=== PATIENT | female | born 1950 | race Caucasian/White ===

== ENCOUNTER 2020-03-03 14:41 | Emergency (ER) | payer MEDICARE, BC ==
[~2020-03-03 14:41] MED LIST: Sodium Chloride 0.9% 1,000 ML ONE
[2020-03-03] MEDS ORDERED: Sodium Chloride 0.9% 1,000 ML ONE (15:14)
[2020-03-03 15:27] LABS: PTT,PARTIAL THROMBOPLSTIN TIME 28.2 SEC (23.2-32.3)
--- NOTE | 2020-03-03 15:38 | EDM.PDOC ---
ED HPI GENERAL MEDICAL PROBLEM - General Chief Complaint: Neuro Symptoms/Deficits Stated Complaint: ? stroke Time Seen by Provider: 03/03/20 14:41 Source of Information: Reports: Patient, EMS, Family History Limitations: Reports: Altered Mental Status - History of Present Illness INITIAL COMMENTS - FREE TEXT/NARRATIVE: This patient is a 69 year old female that presents to the ER via EMS. The report I get from EMS. Patient has pancreatic cancer and had chemo on Wednesday. EMS reports that the patient today was acting fine, then became generally weak and would not respond to family. The patient arrives in the ER. She has no unilateral weaknesses noted on stroke exam, patient is awake, alert, oriented to place and self, but not time. The patient reports that she does not feel well, but does not now what is going on or why she is here. YANNA Kimble reports the family at the front door telling us not to touch this patient. Patient is headed directly into CT for head CT upon the arrival. I had staff to continue with head CT, as I stepped outside the facility front door to talk with family about their wishes. I spoke with and daughter who both report to continue treatment at this time. I then returned to the patient to continue care. I instructed RN to COVID screen the family daughter and to come into facility so I can continue to talk with them and care for the patient. The patent arrives hypotensive, tachycardic. She appears chronically ill. This patient may during this ER visit. The patient returned from CT, I finished examination as RNs put patient on cardiac monitors, established IVs. 2L NS wide open. Patient was placed in trendelenburg. Wes was notified to assist in patient care, so I can discuss further with family about DNR vs Full Code. Onset: Today Onset Date: 03/03/20 Onset Time: 10:00 Duration: Getting Worse Severity: Severe Improves with: Reports: None Worsens with: Reports: None Associated Symptoms: Reports: Confusion, Malaise, Shortness of Breath, Syncope, Weakness. Denies: Chest Pain, Cough, cough w sputum, Diaphoresis, Fever/Chills , Headaches, Loss of Appetite, Nausea/Vomiting, Rash, Seizure - Related Data Allergies Allergy/AdvReac Type Severity Reaction Status Date / Time cefuroxime [From Ceftin] Allergy Cannot Verified 03/03/20 15:16 Remember tramadol Allergy Cannot Verified 03/03/20 15:16 Remember Home Meds: Home Meds . [Unable to Verify Home Med List] 03/03/20 [History] ED ROS GENERAL - Review of Systems Review Of Systems: See Below Constitutional: Reports: Malaise, Weakness, Fatigue HEENT: Reports: No Symptoms Respiratory: Reports: Shortness of Breath. Denies: Wheezing, Pleuritic Chest Pain, Cough, Sputum Cardiovascular: Reports: Lightheadedness, Syncope. Denies: Chest Pain, Palpitations Endocrine: Reports: Fatigue GI/Abdominal: Reports: Diarrhea. Denies: Abdominal Pain, Nausea, Vomiting : Reports: No Symptoms Musculoskeletal: Reports: No Symptoms Skin: Reports: No Symptoms Neurological: Reports: Confusion, Dizziness. Denies: Weakness (generalized, NOT unilateral) Psychiatric: Reports: No Symptoms Hematologic/Lymphatic: Reports: No Symptoms Immunologic: Reports: No Symptoms - Physical Exam Exam: See Below Exam Limited By: Altered Mental Status General Appearance: Moderate Distress, Thin, Other (Appears very chronically ill ) Eye Exam: Bilateral Eye: EOMI, Normal Inspection, PERRL Ears: Normal External Exam, Normal Canal, Hearing Grossly Normal, Normal TMs Nose: Normal Inspection, Normal Mucosa, No Blood Throat/Mouth: Normal Lips, Normal Teeth, Normal Gums, Normal Oropharynx, Normal Voice, No Airway Compromise, Other (dry mucosa) Head Exam: Atraumatic, Normocephalic Neck: Normal Inspection, Supple Respiratory/Chest: No Respiratory Distress, Lungs Clear, Normal Breath Sounds, No Accessory Muscle Use, Chest Non-Tender Cardiovascular: Normal Peripheral Pulses, No Edema, Tachycardia (rate 128) GI/Abdominal: Soft, Non-Tender, Other (biliary drain in place) Neuro Exam (Abbreviated): Alert, Confused, Other (oriented to self and place. Not time. Does not know whats going on per patient) Back Exam: Normal Inspection Extremities: Normal Inspection, No Pedal Edema, Slow Capillary Refill Psychiatric: Normal Affect, Normal Mood Skin Exam: Warm, Dry, Intact, No Rash, Other (dusky ill appearing) Course - Vital Signs Last Recorded V/S: Last Vital Signs Temp 98.6 F 03/03/20 16:00 Pulse 113 H 03/03/20 16:00 Resp 28 H 03/03/20 16:00 BP 84/49 L 03/03/20 16:00 Pulse Ox 97 05/31/20 16:00 - Orders/Labs/Meds Orders: Active Orders 24 hr Category Date Time Status Chest 1V Frontal [CR] Routine Exams 03/03/20 Taken Head wo Cont [CT] Routine Exams 03/03/20 Taken CULTURE BLOOD [BC] Stat Lab 03/03/20 15:11 Received CULTURE URINE [RM] Stat Lab 03/03/20 15:55 Received Levofloxacin/Dextrose 5%-Water [Levaquin in D5W 500 MG/ Med 03/03/20 16:09 Active 100 ML] 500 mg Premix Bag 1 bag IV ONETIME Sodium Chloride 0.9% [Normal Saline] 1,000 ml Med 03/03/20 16:02 Active IV .BOLUS Sodium Chloride 0.9% [Normal Saline] 1,000 ml Med 03/03/20 16:15 Active IV BOLUS Medication Orders Sodium Chloride (Normal Saline) 1,000 mls @ 999 mls/hr IV .BOLUS ONE Stop: 03/03/20 17:02 Last Admin: 03/03/20 15:10 Dose: 999 mls/hr Sodium Chloride (Normal Saline) 1,000 mls @ 999 mls/hr IV BOLUS NOEMI Last Admin: 03/03/20 15:37 Dose: 999 mls/hr Levofloxacin/Dextrose 500 mg/ (Premix) 100 mls @ 100 mls/hr IV ONETIME ONE Stop: 03/03/20 17:08 Last Admin: 03/03/20 16:13 Dose: 100 mls/hr Labs: Laboratory Tests 03/03/20 03/03/20 03/03/20 Range/Units 15:11 15:11 15:11 WBC 0.3 L* (5.0-10.0) 10^3/uL RBC 2.38 L (4.00-5.50) 10^6/uL Hgb 7.7 L* (12.0-16.0) g/dL Hct 22.9 L (37.0-47.0) % MCV 96.2 H (82.0-94.0) fL MCH 32.4 H (27.0-32.0) pg MCHC 33.6 (33.0-38.0) g/dL RDW Coeff of Casimiro 19.4 H (11.0-15.0) % Plt Count 54 L (150-400) 10^3/uL Neut % (Auto) 55.6 (35-85) % Lymph % (Auto) 37.0 (10-55) % [place] % (Auto) 3.7 (0-16) % Eos % (Auto) 0 (0-5) % Baso % (Auto) 3.7 H (0-3) % Neut # (Auto) 0.15 L (1.80-7.00) 10^3/uL Lymph # (Auto) 0.10 L (1.00-4.80) 10^3/uL [place] # (Auto) 0.01 (0.00-0.80) 10^3/uL Eos # (Auto) 0.00 (0.00-0.45) 10^3/uL Baso # (Auto) 0.01 10^3/uL PT 12.1 (9.7-12.3) SEC INR 1.20 H (0.92-1.18) APTT 28.2 (23.2-32.3) SEC Sodium 132 L (136-145) mEq/L Potassium 3.0 L (3.5-5.0) mEq/L Chloride 97 L (98-106) mEq/L Carbon Dioxide 23 (21-32) mmol/L BUN 28 H (7-18) mg/dL Creatinine 1.3 H (0.6-1.0) mg/dL Est Cr Clr Drug Dosing 36.08 mL/min Estimated GFR (MDRD) 41 L (>=60) mL/min Glucose 137 H (75-99) mg/dL Lactic Acid (0.4-2.0) mmol/L Calcium 7.7 L (8.4-10.1) mg/dL Total Bilirubin 1.9 H (0.0-1.0) mg/dL AST 93 H (15-37) U/L ALT 95 H (12-78) U/L Alkaline Phosphatase 126 H (46-116) U/L Lactate Dehydrogenase 307 H (100-190) U/L Creatine Kinase 18 L (21-215) U/L Troponin I 0.019 (0.00-0.06) ng/mL C-Reactive Protein 14.5 H (0.2-0.8) mg/dL Total Protein 4.8 L (6.4-8.2) g/dL Albumin 1.6 L (3.4-5.0) g/dL Lipase 36 L (73-393) U/L Urine Color (YELLOW) Urine Appearance (CLEAR) Urine pH (4.5-8.0) Ur Specific [place] (1.003-1.020) Urine Protein (NEGATIVE) mg/dL Urine Glucose (UA) (NEGATIVE) mg/dL Urine Ketones (NEGATIVE) mg/dL Urine Occult Blood (NEGATIVE) Urine Nitrite (NEGATIVE) Urine Bilirubin (NEGATIVE) Urine Urobilinogen (0.2-1.0) EU/dL Ur Leukocyte Esterase (NEGATIVE) Urine RBC (0-5) /HPF Urine WBC (0-5) /HPF Ur Squamous Epith Cells (NOT SEEN) /HPF Urine Bacteria (NOT SEEN) /HPF Urinalysis Comment Blood Type Gel Antibody Screen 03/03/20 03/03/20 03/03/20 Range/Units 15:11 15:24 15:55 WBC (5.0-10.0) 10^3/uL RBC (4.00-5.50) 10^6/uL Hgb (12.0-16.0) g/dL Hct (37.0-47.0) % MCV (82.0-94.0) fL MCH (27.0-32.0) pg MCHC (33.0-38.0) g/dL RDW Coeff of Casimiro (11.0-15.0) % Plt Count (150-400) 10^3/uL Neut % (Auto) (35-85) % Lymph % (Auto) (10-55) % [place] % (Auto) (0-16) % Eos % (Auto) (0-5) % Baso % (Auto) (0-3) % Neut # (Auto) (1.80-7.00) 10^3/uL Lymph # (Auto) (1.00-4.80) 10^3/uL [place] # (Auto) (0.00-0.80) 10^3/uL Eos # (Auto) (0.00-0.45) 10^3/uL Baso # (Auto) 10^3/uL PT (9.7-12.3) SEC INR (0.92-1.18) APTT (23.2-32.3) SEC Sodium (136-145) mEq/L Potassium (3.5-5.0) mEq/L Chloride (98-106) mEq/L Carbon Dioxide (21-32) mmol/L BUN (7-18) mg/dL Creatinine (0.6-1.0) mg/dL Est Cr Clr Drug Dosing mL/min Estimated GFR (MDRD) (>=60) mL/min Glucose (75-99) mg/dL Lactic Acid 3.6 H (0.4-2.0) mmol/L Calcium (8.4-10.1) mg/dL Total Bilirubin (0.0-1.0) mg/dL AST (15-37) U/L ALT (12-78) U/L Alkaline Phosphatase (46-116) U/L Lactate Dehydrogenase (100-190) U/L Creatine Kinase (21-215) U/L Troponin I (0.00-0.06) ng/mL C-Reactive Protein (0.2-0.8) mg/dL Total Protein (6.4-8.2) g/dL Albumin (3.4-5.0) g/dL Lipase (73-393) U/L Urine Color Dark yellow (YELLOW) Urine Appearance Slightly cloudy (CLEAR) Urine pH 6.5 (4.5-8.0) Ur Specific [place] 1.020 (1.003-1.020) Urine Protein 100 H (NEGATIVE) mg/dL Urine Glucose (UA) Negative (NEGATIVE) mg/dL Urine Ketones 15 H (NEGATIVE) mg/dL Urine Occult Blood Small H (NEGATIVE) Urine Nitrite Positive H (NEGATIVE) Urine Bilirubin Small H (NEGATIVE) Urine Urobilinogen 4.0 H (0.2-1.0) EU/dL Ur Leukocyte Esterase Small H (NEGATIVE) Urine RBC 5-10 H (0-5) /HPF Urine WBC 40-50 H (0-5) /HPF Ur Squamous Epith Cells Moderate H (NOT SEEN) /HPF Urine Bacteria Many H (NOT SEEN) /HPF Urinalysis Comment Blood Type A POSITIVE Gel Antibody Screen Negative Meds: Medications Generic Name Dose Route Start Last Admin Trade Name Freq PRN Reason Stop Dose Admin Sodium Chloride 1,000 mls @ 999 mls/hr 03/03/20 16:02 03/03/20 15:10 Normal Saline IV 03/03/20 17:02 999 mls/hr .BOLUS ONE Administration Sodium Chloride 1,000 mls @ 999 mls/hr 03/03/20 16:15 03/03/20 15:37 Normal Saline IV 999 mls/hr BOLUS NOEMI Administration Levofloxacin/Dextrose 500 mg/ 100 mls @ 100 mls/hr 03/03/20 16:09 03/03/20 16 :13 Premix IV 03/03/20 17:08 100 mls/hr ONETIME ONE Administration Discontinued Medications Generic Name Dose Route Start Last Admin Trade Name Nba PRN Reason Stop Dose Admin Sodium Chloride Confirm 03/03/20 14:32 03/03/20 16:04 Normal Saline Administered 03/03/20 14:33 Not Given Dose 1,000 mls @ as directed .ROUTE .STK-MED ONE Sodium Chloride Confirm 03/03/20 15:14 03/03/20 16:04 Normal Saline Administered 03/03/20 15:15 Not Given Dose 1,000 mls @ as directed .ROUTE .STK-MED ONE Levofloxacin/Dextrose Confirm 03/03/20 15:57 03/03/20 16:16 Levaquin In D5w 500 Mg/100 Ml Administered 03/03/20 15:58 Not Given Dose 100 mls @ as directed IV .STK-MED ONE - Radiology Interpretation Free Text/Narrative:: Head CT: Negative CT Results Date: 03/03/20 CT Results Time: 15:30 - Re-Assessments/Exams Free Text/Narrative Re-Assessment/Exam: 03/03/20 15:00 I have spoken more to family. Family reports the patient has pancreatic and ovarian cancer. She had chemo Wednesday, saw oncologist as well, was doing fine. Then started to have diarrhea from the chemo. Family reports patient then went to [facility] yesterday, had 2L of fluids for her dehydration related to the diarrhea. Family reports was doing good, then today has been momre generally weak. Could not stand and nearly fell to the floor. They report the patient has been this way since this morning. They report the patient as the day progressed became less responsive to them and wouldnt talk to them. I spoke in great detail about code status. The patient currently does have a DNR, the reports. However, the reports that the patient has two daughters that are on their way, and he would like to keep her alive. He reports at this time he would like her to be a full code and transferred. Mateo Padgetta, is arranging flight to [facility] where this patients oncologist is. At this time, patient BP and HR are responding to the fluids. BP is 94/58, HR 102. 03/03/20 15:50 Also see Shay charting. 03/03/20 16:26 Patient has UTI, I think she is uroseptic. Levaquin was ordered. Departure - Departure Time of Disposition: 15:51 Disposition: DC/Tfer to [facility] 02 Condition: Critical Clinical Impression: Weakness generalized, Tachycardia, Sepsis associated hypotension, Sepsis due to urinary tract infection Hypotension Qualifiers: Hypotension type: unspecified hypotension type Qualified Code(s): I95.9 - Hypotension, unspecified - Discharge Information *PRESCRIPTION DRUG MONITORING PROGRAM REVIEWED*: Not Applicable *COPY OF PRESCRIPTION DRUG MONITORING REPORT IN PATIENT COREEN: Not Applicable Referrals: PCP,Unknown [Primary Care Provider] - Forms: ED Department Discharge Sepsis Event Note - Evaluation Sepsis Screening Result: No Definite Risk - Focused Exam Vital Signs: Vital Signs Temp Pulse Resp BP Pulse Ox 03/03/20 16:00 98.6 F 113 H 28 H 84/49 L 97 03/03/20 14:45 97.6 F 57 L 24 H 67/41 L 89 L Date Exam was Performed: 03/03/20 Time Exam was Performed: 16:26 - My Orders Last 24 Hours: My Active Orders 03/03/20 Chest 1V Frontal [CR] Routine Head wo Cont [CT] Routine 03/03/20 15:11 CULTURE BLOOD [BC] Stat 03/03/20 15:55 CULTURE URINE [RM] Stat 03/03/20 16:02 Sodium Chloride 0.9% [Normal Saline] 1,000 ml IV .BOLUS 03/03/20 16:09 Levofloxacin/Dextrose 5%-Water [Levaquin in D5W 500 MG/100 ML] 500 mg Premix Bag 1 bag IV ONETIME 03/03/20 16:15 Sodium Chloride 0.9% [Normal Saline] 1,000 ml IV BOLUS - Assessment/Plan Last 24 Hours: My Active Orders 03/03/20 Chest 1V Frontal [CR] Routine Head wo Cont [CT] Routine 03/03/20 15:11 CULTURE BLOOD [BC] Stat 03/03/20 15:55 CULTURE URINE [RM] Stat 03/03/20 16:02 Sodium Chloride 0.9% [Normal Saline] 1,000 ml IV .BOLUS 03/03/20 16:09 Levofloxacin/Dextrose 5%-Water [Levaquin in D5W 500 MG/100 ML] 500 mg Premix Bag 1 bag IV ONETIME 03/03/20 16:15 Sodium Chloride 0.9% [Normal Saline] 1,000 ml IV BOLUS Plan: PLEASE SEE RN NOTE FOR PFSH Patient is being transferred via flight. Risk vs Benefits explained to family. The risk of transfer is helicopter crash, , hypotension, tachycardia, cardiac arrest. The risk of staying in [place] is , cardiac arrest, no oncologist. The benefits of transfer are higher level of care, oncologist, ICU. The benefits of staying in [place] is close to home.
[2020-03-03] MEDS ORDERED: Levofloxacin/Dextrose 5%-Water 100 ML IV ONE (15:57)
[2020-03-03] MEDS ORDERED: Sodium Chloride 0.9% 1,000 ML IV ONE (16:02)
[2020-03-03] MEDS ORDERED: Levofloxacin/Dextrose 5%-Water 500 MG in Premix Bag 1 BAG IV ONE (16:09)
[2020-03-03] MEDS ORDERED: Sodium Chloride 0.9% 1,000 ML IV SCH (16:15)
== END 2020-03-03 16:24 ==
LOC: CC.ED 14:41
DX: A41.9 Sepsis, unspecified organism (principal); I95.9 Hypotension, unspecified; N39.0 Urinary tract infection, site not specified; Z88.1 Allergy status to other antibiotic agents; Z88.6 Allergy status to analgesic agent
CPT/HCPCS: 36415; 51702; 70450; 71045; 80053; 81001; 82550; 83605; 83615; 83690; 84484; 85025; 85610; 85730; 86140; 86850; 86900; 86901; 87040; 87086; 87088; 87186; 93005; 96361; 96374; 99284; 99285-25; J1956; J7030